=== PATIENT | female | born 1980 | race American Indian/Alaskan Native ===

== ENCOUNTER 2018-10-27 10:37 | Emergency (ER) | payer OTHER ==
--- NOTE | 2018-10-27 12:00 | Emergency Department Report ---
ED Eye Problem HPI - General Chief complaint: Eye Problems Stated complaint: RT EYE SWELLING/PAIN Time Seen by Provider: 10/27/18 11:37 Source: patient Mode of arrival: Ambulatory Limitations: No Limitations - History of Present Illness Initial comments: Ms. Dunbar is a 38 yo female with redness and tenderness at her right lower eyelid. no trauma. She awakened with the lesion. No previous injury or URI. -: Gradual, This morning Location: right eye If Injury: none Severity: mild Consistency: constant Associated Symptoms: none Treatments Prior to Arrival: none - Related Data Previous Rx's Medication Instructions Recorded Last Taken Type Sulfamethoxazole/Trimethoprim 1 each PO BID 14 Days #7 tablet 10/27/18 Unknown Rx [Bactrim DS TAB] Allergies Allergy/AdvReac Type Severity Reaction Status Date / Time No Known Allergies Allergy Unverified 10/27/18 10:40 ED Review of Systems ROS: Stated complaint: RT EYE SWELLING/PAIN Other details as noted in HPI Constitutional: denies: fever, malaise Eyes: denies: eye pain, eye discharge, vision change ENT: denies: throat pain Respiratory: denies: cough ED Past Medical Hx - Past Medical History Previous Medical History?: No - Surgical History Past Surgical History?: No - Social History Smoking Status: Current Every Day Smoker Substance Use Type: Alcohol - Medications Home Medications: Home Medications Medication Instructions Recorded Confirmed Last Taken Type Sulfamethoxazole/Trimethoprim 1 each PO BID 14 Days #7 tablet 10/27/18 Unknown Rx [Bactrim DS TAB] ED Physical Exam - General Limitations: No Limitations General appearance: alert, in no apparent distress - Head Head exam: Present: atraumatic, normocephalic - Eye Eye exam: Present: PERRL, EOMI, other (right lower eyelid: Erythematous region with swelling over 2 cm region). Absent: scleral icterus, conjunctival injection, nystagmus - ENT ENT exam: Present: mucous membranes moist - Neurological Exam Neurological exam: Present: alert, oriented X3 - Psychiatric Psychiatric exam: Present: normal affect, normal mood - Skin Skin exam: Present: warm, dry, intact, normal color ED Course Vital Signs 10/27/18 10:45 Temperature 98.5 F Pulse Rate 68 Respiratory 16 Rate Blood Pressure 104/68 Blood Pressure 104/68 [Left] O2 Sat by Pulse 95 Oximetry ED Medical Decision Making - Medical Decision Making Stye: normal globe, rx: bactrim Critical care attestation.: If time is entered above; I have spent that time in minutes in the direct care of this critically ill patient, excluding procedure time. ED Disposition Clinical Impression: Stye Disposition: DC-01 TO HOME OR SELFCARE Is pt being admited?: No Does the pt Need Aspirin: No Condition: Stable Instructions: Stye (ED) Prescriptions: Sulfamethoxazole/Trimethoprim [Bactrim DS TAB] 1 each PO BID 14 Days #7 tablet Referrals: RYAN MARTINEZ MD [Primary Care Provider] - 3-5 Days Forms: Work/School Release Form(ED)
== END 2018-10-27 12:08 | disposition home or self-care (01) ==
LOC: ED 10:37
CPT/HCPCS: 99282